=== PATIENT | male | born 1985 | race Caucasian/White ===

== ENCOUNTER 2021-07-20 12:20 | Emergency (ER) | payer OTHER, SELFPAY ==
[2021-07-20 12:31] VITALS: BP 152/94; PULSE 69; RESP 13; TEMP 36.6; O2SAT 98; BMI 34.4
[2021-07-20 12:37] VITALS: TEMP 36.5
--- NOTE | 2021-07-20 13:01 | W.ED.SKABFB ---
HPI - Skin/Abscess/Foreign Bdy General: Chief complaint: Skin/Abscess/Foreign Body Stated complaint: abscess/ bite on left ankle Time Seen by Provider: 07/20/21 12:51 History of Present Illness: Patient is a 36-year-old male comes to the ED with rash on left ankle. Patient noticed rash on left ankle last night. It is red, warm and tender to the touch. [place] and goes outside. In the [place] a lot, but denies feeling any kind of bite. Associated symptoms: Deny chills, fever(s), nausea or vomiting Review of Systems Const: Denies: fever(s), chills or fatigue Eyes: Denies: change in vision or eye discomfort ENMT: Denies: throat pain, odynophagia, nasal discharge or nasal congestion Card: Denies: chest pain, palpitations, edema, swelling of feet/ankles, dyspnea on exertion or orthopnea Resp: Denies: dyspnea, productive cough or non-productive cough GI: Denies: abdominal pain, nausea, vomiting, diarrhea, constipation or hematochezia : Denies: flank pain, difficulty urinating, dysuria or hematuria Musc: Denies: neck pain, back pain or extremity swelling Skin/Breast: Reports: new lesions (Painful, red and warm lesion to left ankle.); Denies: rash Neuro: Denies: headache(s), numbness in extremities or weakness in extremities PFS ED PFSH: Medical History No pertinent family history Surgical History No pertinent past surgical history Physical Exam Const: COMMON NORMALS: no acute distress, patient oriented x3 and alert GENERAL APPEARANCE: cooperative and comfortable HENMT: COMMON NORMALS: normocephalic HEAD & SCALP: normocephalic MOUTH: Normal oral and palatal mucosa present THROAT: posterior oropharynx normal and uvula midline Neck/C-Spine: COMMON NORMALS: supple GENERAL: Yes normal visual inspection Resp: COMMON NORMALS: normal respiratory effort, No retractions, No use of accessory muscles and clear to auscultation bilaterally AUSCULTATION: clear to auscultation bilaterally Cardio: COMMON NORMALS: regular rate, regular rhythm, S1 normal heart sound present, S2 normal heart sound present, No gallops present (Cardio), No clicks present (Cardio), No murmurs present (Cardio) and Peripheral pulses 2+ throughout RATE: regular rate RHYTHM: regular rhythm HEART SOUNDS: S1 normal heart sound present and S2 normal heart sound present PERIPHERAL PULSES: Peripheral pulses 2+ throughout GI: COMMON NORMALS: Normal to inspection, nondistended, normoactive bowel sounds present, Soft to palpation, non-tender and no masses PALPATION: Yes Soft to palpation : COMMON NORMALS: Yes no CVA tenderness BLADDER/KIDNEY EXAM: Yes no CVA tenderness Back/Pelvis: COMMON NORMALS: no CVA tenderness Extremity: COMMON NORMALS: normal to inspection Neuro: COMMON NORMALS: patient oriented x3 and moves all extremities SENSORIUM/ORIENTATION: Yes alert Skin: NARRATIVE SKIN EXAM: Medial aspect of left ankle?circular erythemic, warm and raised maculopapular rash with a diameter of 6 cm. in the center of rash appears to be 2 very small puncture wounds. No purulent drainage noted. Findings suggestive of some cellulitis developing after possible insect/spider bite. GENERAL SKIN EXAM: dry skin Course Vital Signs: Vital signs: Vital Signs Temperature 97.7 F 07/20/21 12:37 Pulse Rate 69 07/20/21 12:31 Respiratory Rate 13 07/20/21 12:31 Blood Pressure 152/94 07/20/21 12:31 Pulse Oximetry 98 07/20/21 12:31 MDM - Skin/Abscess/Foreign Bdy Medicial Decision Making Patient is a 36-year-old male comes to the ED with rash on left ankle. He says his origin of rash is unknown and noticed it yesterday. Rash is painful red and warm. Vitals are stable and patient appears nontoxic in no acute distress. Medial aspect of left ankle?circular erythemic, warm and raised maculopapular rash. In the center of lash appears to be 2 very small puncture wounds. Findings suggestive of some cellulitis developing after possible insect/spider bite. Patient was sent home with a prescription for Bactrim. He was told to follow-up with his PCP in the next week for reevaluation. Return to ED precautions given. Patient is done agree with plan. Discharge Plan Discharge Patient Disposition: Home Clinical Impression: Cellulitis Qualifiers: Site of cellulitis: extremity Site of cellulitis of extremity: lower extremity Laterality: left Qualified Code(s): L03.116 - Cellulitis of left lower limb Condition: Stable Prescriptions: New Bactrim DS 800-160 mg tablet 1 tab PO BID 7 Days Qty: 14 0RF Discharge Orders: Discharge ED (Routine); Ordered 07/20/21 Ordered By: Salinas Parsons Discharge Diet: Regular Discharge Activity: Resume usual activity Activity Restrictions/Additional Instructions: Follow-up with medical provider as directed within the next 3 to 5 days to have rash reevaluated. take medications as prescribed. You should notice improvement or rash should stop expanding after being on antibiotics for 48 to 72 hours. return to the ER or your medical provider if condition worsens. Please read and understand discharge instructions. Thank you for choosing [facility] for your healthcare needs today. Please realize this is an emergency room and that we are providing you with a medical screening exam and this may not be complete and all inclusive of all the testing and or work up that you may need to determine your ailment or severity of your illness. It is very important that you follow up as instructed or that you return to the Emergency Department should you have concerns or if your condition changes or worsens in any way. Coding Level of Care Code ED Automotive Machinist Apprentice for Genoveva Hutton Exam Comprehensive
== END 2021-07-20 13:18 | disposition home or self-care (01) ==
PROVIDERS: Emergency Provider Physician Assistant
DX: L03.116 Cellulitis of left lower limb (principal)
CPT/HCPCS: 99283

== ENCOUNTER 2021-10-28 12:39 | Emergency (ER) | payer OTHER, SELFPAY ==
[2021-10-28 13:04] VITALS: BP 134/88; PULSE 83; RESP 16; TEMP 36.7; O2SAT 97; BMI 33.4
[2021-10-28 13:32] VITALS: BP 158/92; PULSE 84; RESP 17; O2SAT 97
--- NOTE | 2021-10-28 13:52 | W.ED.BACK ---
HPI - Back Pain/Injury General: Chief Complaint: Back Pain/Injury Stated Complaint: says his Back is locked up Time Seen by Provider: 10/28/21 13:31 PFSH ED PFSH: Medical History No pertinent family history Surgical History No pertinent past surgical history Course Vital Signs: Vital signs: Vital Signs Temperature 98.1 F 10/28/21 13:04 Pulse Rate 84 10/28/21 13:32 Respiratory Rate 17 10/28/21 14:15 Blood Pressure 158/92 10/28/21 13:32 Pulse Oximetry 97 10/28/21 13:32 Oxygen Delivery Me thod 10/28/21 13:32 Discharge Plan Discharge Condition: Stable Prescriptions: No Action ibuprofen 200 mg Tablet 800 mg PO Q6H PRN (Reason: Pain) Coding Level of Care Code ED Relish Blender for Genoveva Hutton
[2021-10-28] MEDS: ketorolac 30 mg/mL INJ IM (14:14)
[2021-10-28 14:15] VITALS: RESP 17
[2021-10-28] MEDS: lidocaine 5% Patch 1 PATCH TOPICAL (14:15)
[2021-10-28] MEDS: morphine 4 mg/mL SDV 1 mL IM (14:15)
[2021-10-28] MEDS: triamcinolone 40 mg/mL SDV IM (14:21)
--- NOTE | 2021-10-28 14:52 | ED_ITS ---
HPI - General Adult General: Chief complaint: Back Pain/Injury Stated complaint: says his Back is locked up Time Seen by Provider: 10/28/21 13:31 History of Present Illness: Patient is a 36-year-old male with history of chronic back pain for the last 2 years presenting to the emergency room with complaints of cute onset of left lower back/glute pain with radiation to the leg. Patient tells me that yesterday bent over when he felt the sudden onset of pain. Since then, patient has had significant worsening of pain with radiation to the left flank. Patient denies any weakness, legs, fever/chills, IV drug use, and history of diabetes. Patient denies any saddle symptoms, bladder or bowel problem. Patient has no history immunocompromise, diabetes or HIV. Onset: 1 day ago Duration:1 day Location:home Severity:moderate Associated symptoms: Deny chest pain, dyspnea, nausea, rash, palpitations or vomiting Review of Systems Const: Denies: fever(s) or chills Eyes: Denies: change in vision ENMT: Denies: mouth pain Card: Denies: chest pain or palpitations Resp: Denies: dyspnea or non-productive cough GI: Denies: abdominal pain, nausea, vomiting or diarrhea : Denies: dysuria Musc: Reports: other (+L lumbar back pain); Denies: extremity pain Skin/Breast: Denies: rash or new lesions Neuro: Denies: weakness in extremities Psych: Reports: other (Normal mood) Williams/Lymph: Denies: easy bruising PFS ED PFSH: Medical History No pertinent family history Surgical History No pertinent past surgical history Physical Exam Const: COMMON NORMALS: alert HENMT: COMMON NORMALS: atraumatic HEAD & SCALP: atraumatic MOUTH: moist mucous membranes not abnormal Eye: COMMON NORMALS: EOMs intact bilaterally and conjunctivae normal CONJUNCTIVA: Yes conjunctivae normal Neck/C-Spine: COMMON NORMALS: full ROM and supple Resp: COMMON NORMALS: normal respiratory effort and clear to auscultation bilaterally AUSCULTATION: clear to auscultation bilaterally Cardio: COMMON NORMALS: regular rate RATE: regular rate GI: COMMON NORMALS: Soft to palpation and non-tender PALPATION: Yes Soft to palpation Extremity: COMMON NORMALS: full ROM Neuro: SENSORIUM/ORIENTATION: Yes alert MOTOR EXAM: No Abnormal motor strength present and Other motor observations present (no focal motor deficits) Psych: COMMON NORMALS: speech normal SPEECH: Yes normal speech MOOD & AFFECT: Yes euthymic mood Procedures Nerve Block Nerve Block 1: Time out performed: Yes Local Anesthetic: lidocaine 1% and with epi Amount of anesthesia used (mL): 10 Side: left Nerve Blocks: other (No nerve block, local injection to L paraspinal knots) Additional Comments: Trigger point injection: 3 palpable knots over the left paraspinal muscles and L ugte at the level of L5/S1 identified. Risks of procedures in infection, nerve injury, hematoma, and bleeding discussed extensively with patient and alternatives of medical management discussed in detail including conservative management. Patient elects for the procedure. Trigger point injections of the L glutes - one knot were appreciated on palpitation. Trigger point injection of the L paraspinal muscle - two knots were appreciated. Surface cleaned extensively with isopropyl alcohol and chlorohexadine, sterile 7-0 gloves used. 40mg of kenalog mixed 10 cc of lidocaine 1% w/ epi were injected into the sites of pain and pressure. No neurological complications. Patient reports significant pain improvement and is now able to ambulate without any difficulities. Course Vital Signs: Vital signs: Vital Signs Temperature 98.1 F 10/28/21 13:04 Pulse Rate 84 10/28/21 13:32 Respiratory Rate 17 10/28/21 14:15 Blood Pressure 158/92 10/28/21 13:32 Pulse Oximetry 97 10/28/21 13:32 Oxygen Delivery Me thod 10/28/21 13:32 MDM - General Adult Medical Decision Making Patient is a 36-year-old male with history of chronic back pain for the last 2 years presenting to the emergency room with complaints of cute onset of left lower back/glute pain with radiation to the leg. Exam, patient has 3 knots palpable knots on the left paraspinal lower back and glute area. 5 out of 5 strength in the lower extremity, no saddle anesthesia. Patient has no bowel or bladder symptoms. Symptoms are consistent with possible sciatica and muscle knots. Patient received IM Toradol and morphine with improvement in pain. Patient had paraspinal L5/S1 injection into the muscle knots. Patient reports feeling symptomatically improved. Patient is able to ambulate with crutches. Please refer to the procedure note. Rx: percocet, lidocaine patch, and menthol PRN pain Disposition: Discharge. Patient counseled regarding diagnostic impression, treatment plan. Patient given ED strict return precautions to return for continuation, worsening, or development of new symptoms. Instructed to f/u w/ PCP regarding symptoms today. Patient verbalized understanding. Discharge Plan Discharge Patient Disposition: Home Clinical Impression: Back pain, Sciatica, Lumbar radiculopathy Condition: Stable Prescriptions: New Percocet 5-325 mg tablet 1 tab PO Q8H PRN (Reason: pain) Qty: 5 0RF lidocaine 5 % adhesive patch,medicated 1 patch topical DAILY PRN (Reason: pain) 30 Days Qty: 30 0RF Rx Instructions: leave on most painful area for up to 12 hrs Biofreeze (menthol) 5 % gel 1 ea topical BID PRN (Reason: pain) 10 Days Qty: 1 0RF No Action ibuprofen 200 mg Tablet 800 mg PO Q6H PRN (Reason: Pain) Discharge Orders: Discharge ED (Routine); Ordered 10/28/21 Ordered By: Jaelyn Ball Discharge Diet: Advance as tolerated Discharge Activity: Increase activity as tolerated Patient Instructions: Back Pain (ED), Opioid Safety Activity Restrictions/Additional Instructions: Please come back to the emergency room to have worsening back pain, if have any problem with urination and bowel movementm if you have any weakness in the legs, numbness in the legs, or if you have any new or concerning complaints. Our mental health case manager will have you follow-up with Orthopedic surgery in the next few days. You would be expected to have a phone call with our mental health case manager who will put you on the schedule. You can expect a call from us in the next 2-3 days. If you don't hear from us, call us back in the emergency room at [phone]. Coding Level of Care Code ED Dude Wrangler for Genoveva Hutton Exam Comprehensive
== END 2021-10-28 15:26 | disposition home or self-care (01) ==
PROVIDERS: Emergency Provider Emergency Medicine
DX: M54.16 Radiculopathy, lumbar region (principal); M54.30 Sciatica, unspecified side
CPT/HCPCS: 20552; 96372; 99284; E0114; J1885; J2270; J3301

== ENCOUNTER 2022-02-20 15:14 | Emergency (ER) | payer OTHER, SELFPAY ==
[2022-02-20 17:12] VITALS: BP 138/76; PULSE 102; RESP 18; TEMP 37.3; O2SAT 95; BMI 33.4
--- NOTE | 2022-02-20 17:17 | XRR_ITS ---
PROCEDURE INFORMATION: Exam: XR Chest Exam date and time: 02/20/2022 6:02 PM Age: 36 years old Clinical indication: Shortness of breath; Additional info: SOB TECHNIQUE: Imaging protocol: Radiologic exam of the chest. Views: 1 view. COMPARISON: No relevant prior studies available. FINDINGS: Lungs: Unremarkable. No consolidation. Pleural spaces: Unremarkable. No pleural effusion. No pneumothorax. Heart/Mediastinum: Unremarkable. No cardiomegaly. Bones/joints: Unremarkable for age. XR/XR chest 1V portable [id number] IMPRESSION: Negative chest
--- NOTE | 2022-02-20 19:38 | W.ED.SOB ---
HPI - SOB/Dyspnea General: Chief Complaint: Shortness of Breath/Dyspnea Stated Complaint: possible flu Time Seen by Provider: 02/20/22 19:34 Source: patient Mode of arrival: ambulatory Limitations: no limitations History of Present Illness: HPI Narrative: 36-year-old male states that over the last 2 days he has been having cough congestion body aches along with low-grade fevers. He states he feels like he has the flu he denies any vomiting or diarrhea he denies any worsening improving factors. Associated symptoms: Reports fever(s); Deny abdominal pain, chest pain, nausea or vomiting Review of Systems Const: Reports: fever(s), chills and body aches Eyes: Denies: blurry vision or eye discomfort ENMT: Reports: nasal congestion Card: Denies: chest pain Resp: Reports: non-productive cough GI: Denies: abdominal pain, nausea, vomiting or diarrhea : Denies: dysuria Musc: Denies: neck pain or back pain Skin/Breast: Denies: rash Neuro: Denies: headache(s) Psych: Denies: depression Williams/Lymph: Denies: easy bruising All/Imm: Denies: urticaria PFSH ED PFSH: Medical History No pertinent family history Surgical History No pertinent past surgical history Social History (Updated 02/20/22 @ 19:39 by Xander Arias MD) Smoking and tobacco status: current every day smoker Physical Exam Const: COMMON NORMALS: no acute distress, patient oriented x3 and healthy appearing HENMT: COMMON NORMALS: normocephalic and atraumatic HEAD & SCALP: normocephalic and atraumatic Eye: COMMON NORMALS: Equal, round and reactive pupils present and EOMs intact bilaterally PUPIL: Yes Equal, round and reactive pupils present Neck/C-Spine: COMMON NORMALS: full ROM and supple Chest: COMMONS NORMALS: normal inspection of the chest and normal palpation of entire chest wall Resp: COMMON NORMALS: normal respiratory effort, No retractions, No use of accessory muscles and clear to auscultation bilaterally AUSCULTATION: clear to auscultation bilaterally Cardio: COMMON NORMALS: regular rate, regular rhythm and No murmurs present (Cardio) RATE: regular rate RHYTHM: regular rhythm GI: COMMON NORMALS: Normal to inspection, nondistended, normoactive bowel sounds present, Soft to palpation, non-tender and no masses PALPATION: Yes Soft to palpation Extremity: COMMON NORMALS: normal to inspection and full ROM Neuro: COMMON NORMALS: patient oriented x3, moves all extremities and no focal motor deficits Psych: COMMON NORMALS: mental status grossly normal, Normal thought process present and cooperative THOUGHT PROCESS: Normal thought process present Skin: COMMON NORMALS: no rashes or lesions noted and no wounds GENERAL SKIN EXAM: no rashes or lesions noted Course Vital Signs: Vital signs: Vital Signs Temperature 99.2 F 02/20/22 17:12 Pulse Rate 102 H 02/20/22 17:12 Respiratory Rate 18 02/20/22 17:12 Blood Pressure 138/76 02/20/22 17:12 Pulse Oximetry 95 02/20/22 17:12 Oxygen Delivery Me thod 02/20/22 17:12 MDM - SOB/Dyspnea Medical Decision Making Patient presents here with cough congestion is flu positive we will start him on Tamiflu he is well-appearing in no distress he stable for discharge. Lab Data Labs/Radiology: Radiology Impressions Chest X-Ray 02/20/22 17:17 IMPRESSION: Negative chest Laboratory Results Influenza Type A Ag Positive (Negative) H 02/20/22 20:20 Influenza Type B Ag Negative (Negative) 02/20/22 20:20 SARS-CoV-2 Ag (Rapid) negative (Negative) 02/20/22 20:20 Discharge Plan Discharge Patient Disposition: Home Clinical Impression: Influenza A Prescriptions: New Tamiflu 75 mg capsule 75 mg PO BID 5 Days Qty: 10 0RF No Action ibuprofen 200 mg Tablet 800 mg PO Q6H PRN (Reason: Pain) Percocet 5-325 mg tablet 1 tab PO Q8H PRN (Reason: pain) Qty: 5 0RF Discharge Orders: Discharge ED (Routine); Ordered 02/20/22 Ordered By: Xander Arias Discharge Diet: Advance as tolerated Discharge Activity: Resume usual activity Patient Instructions: Influenza (ED) Coding Level of Care Code ED Event Producer for g Fwd Exam Comprehensive
[2022-02-20] MEDS: dexamethasone 10 mg/mL INJ IM (20:11)
[2022-02-20] MEDS: ketorolac 60 mg/2 mL INJ IM (20:11)
[2022-02-20 20:52] LABS: SARS Covid-2 Antigen negative (Negative)
[2022-02-20 21:09] LABS: Influenza A by IFA Positive (Negative); Influenza B by IFA Negative (Negative)
[2022-02-20 21:39] VITALS: PULSE 80; RESP 18
== END 2022-02-20 21:38 | disposition home or self-care (01) ==
PROVIDERS: Emergency Provider Emergency Medicine
DX: J10.1 Influenza due to other identified influenza virus with other respiratory manifestations (principal); Z20.822 Contact with and (suspected) exposure to COVID-19; F17.210 Nicotine dependence, cigarettes, uncomplicated
CPT/HCPCS: 71045; 87426; 87804; 96372; 99284; J1100; J1885

== ENCOUNTER 2022-11-01 22:10 | Emergency (ER) | payer SELFPAY ==
[2022-11-01 22:12] VITALS: BP 159/48; PULSE 79; RESP 20; TEMP 36.6; O2SAT 98; BMI 33.4
--- NOTE | 2022-11-01 22:22 | CTR_ITS ---
PROCEDURE INFORMATION: Exam: CT Abdomen And Pelvis Without Contrast Exam date and time: 11/01/2022 11:12 PM Age: 37 years old Clinical indication: Abdominal pain; Localized; Right lower quadrant (rlq); Patient HX: Severe rlq pain TECHNIQUE: Imaging protocol: Computed tomography of the abdomen and pelvis without contrast. Radiation optimization: All CT scans at this facility use at least one of these dose optimization techniques: automated exposure control; mA and/or kV adjustment per patient size (includes targeted exams where dose is matched to clinical indication); or iterative reconstruction. REPORTING DATA: Count of CT and Cardiac NM exams in prior 12 months: This patient has received 0 known CTs and 0 known cardiac nuclear medicine studies in the 12 months prior to the current study. COMPARISON: CR (CHEST, ) 02/20/2022 6:02 PM RADIATION DOSE METRICS: Total DLP (mGy-cm): 798.73 FINDINGS: Liver: The liver is unremarkable in appearance. Gallbladder and bile ducts: Unremarkable. No calcified stones. No ductal dilation. Pancreas: The pancreas is normal in appearance. No pancreatic duct dilatation. Spleen: No focal splenic lesion. No splenomegaly. Adrenal glands: The adrenal glands appear within normal limits. Kidneys and ureters: Nonobstructing 2 mm bilateral renal calculi noted. Mild right hydroureteronephrosis. There is a 3 mm distal right ureteral calculus. Findings are consistent with right obstructive uropathy. Left kidney is unremarkable. Stomach and bowel: No acute bowel abnormality identified. Appendix: The appendix is normal in appearance. No evidence of appendicitis. Intraperitoneal space: No free air. No significant fluid collection. Vasculature: No abdominal aortic aneurysm. Lymph nodes: No pathologically enlarged lymph nodes. Urinary bladder: The urinary bladder is unremarkable in appearance. Reproductive: Unremarkable as visualized. Bones/joints: Unremarkable. No acute osseous abnormality. Soft tissues: Unremarkable. CT/CT abdomen pelvis wo con [id number] IMPRESSION: 1. Mild right hydroureteronephrosis. There is a 3 mm distal right ureteral calculus. Findings are consistent with right obstructive uropathy. 2. The appendix is normal in appearance. No evidence of appendicitis.
[2022-11-01 22:40] VITALS: RESP 26; O2SAT 96
[2022-11-01] MEDS: sodium chloride 0.9% 1,000 ML 999 ML IV (22:40)
[2022-11-01] MEDS: HYDROmorphone 1 mg/mL INJ 1 mL IVP ×2 (22:40→22:59)
[2022-11-01] MEDS: ondansetron 2 mg/ML SDV 2 mL 4 MG IVP ×2 (22:40→23:00)
[2022-11-01 22:50] LABS: Basophils % 0.3 %; Eosinophils # 0.1 10^3/uL (0.0-0.8); Eosinophils % 1.1 %; Hematocrit 43.7 % (37-53); Lymphocytes # 3.1 10^3/uL (0.8-4.8); Mean Corpuscular HGB Conc 35.2 g/dL (30-55); Mean Corpuscular Hemoglobin 31.6 pg (27-33); Mean Corpuscular Volume 89.5 fl (82-101); Mean Platelet Volume 10.2 fL (7.4-10.4); Monocytes # 0.7 10^3/uL (0.2-0.9); Monocytes % 5.8 %; Neutrophils # 8.38 10^3/uL (1.8-7.7); Neutrophils % 67.4 %; Nucleated Red Blood Cells % 0 %; Platelet Count 205 10^3/cmm (157-399); Red Blood Count 4.88 10^6/uL (3.85-5.65); Red Cell Distribution Width 12.2 % (12.1-15.1); White Blood Count 12.44 10^3/uL (3.29-11.43)
[2022-11-01 22:59] VITALS: RESP 20; O2SAT 97
--- NOTE | 2022-11-01 23:10 | ED_ITS ---
HPI - Abdominal Pain General: Chief Complaint: Abdominal Pain Stated Complaint: lower right quadrent pain Time Seen by Provider: 11/01/22 22:22 Source: patient History of Present Illness: 37-year-old male with sudden onset right lower quadrant pain an hour or so prior to arrival. He has vomited several times. No fever, but chills. MD elicited complaint: abdominal pain Associated Symptoms: Reports chills, nausea and vomiting; Denies diarrhea and fever(s) Review of Systems Const: Reports: chills; Denies: fever(s) ENMT: Denies: throat pain Card: Denies: chest pain or palpitations Resp: Denies: dyspnea or productive cough GI: Reports: abdominal pain, nausea and vomiting; Denies: diarrhea Skin/Breast: Denies: rash PFSH ED PFSH: Medical History No pertinent family history Surgical History No pertinent past surgical history Social History Smoking and tobacco status: current every day smoker Physical Exam Const: GENERAL APPEARANCE: cooperative and ill appearing (mildly); not frail appearing HENMT: COMMON NORMALS: normocephalic, atraumatic and Normal external nose present HEAD & SCALP: normocephalic and atraumatic FACE & SINUS: normal facial exam and face symmetric NOSE: Normal external nose present Eye: COMMON NORMALS: Equal, round and reactive pupils present and EOMs intact bilaterally PUPIL: Yes Equal, round and reactive pupils present Neck/C-Spine: GENERAL: Yes trachea midline Chest: CHEST: Yes Symmetrical chest wall rise Resp: COMMON NORMALS: normal respiratory effort, No retractions, No use of accessory muscles and clear to auscultation bilaterally AUSCULTATION: clear to auscultation bilaterally Cardio: COMMON NORMALS: regular rate and regular rhythm RATE: regular rate RHYTHM: regular rhythm GI: COMMON NORMALS: Normal to inspection, nondistended, normoactive bowel sounds present PALPATION: Yes Tenderness to palpation present (GI) Details: RLQ Extremity: COMMON NORMALS: no pedal edema Neuro: ARLIN COMA SCALE: document GCS findings [place] coma scale eye opening: Spontaneous [place] coma scale verbal response: Orientated [place] coma scale motor response: Obey commands [place] coma scale total score: 15 SENSORY EXAM: Yes extremities (intact) Psych: COMMON NORMALS: speech normal SPEECH: Yes normal speech Skin: COMMON NORMALS: no rashes or lesions noted GENERAL SKIN EXAM: no rashes or lesions noted Course Vital Signs: Vital signs: Vital Signs Temperature 97.9 F 11/01/22 22:12 Pulse Rate 60 11/02/22 02:04 Respiratory Rate 16 11/02/22 02:04 Blood Pressure 121/74 11/02/22 02:04 Pulse Oximetry 97 11/01/22 22:59 Oxygen Delivery Me thod Room Air 11/01/22 22:12 MDM - Abdominal Pain Medical Decision Making CBC shows a white blood cell count of 12. Potassium is 3.4. Other laboratory is not remarkable. CT shows mild right hydro nephrosis with a 3 mm distal right ureter calculus. CRP is 3. Patient is afebrile. He will be allowed home. Pain control, Flomax, urology follow-up. Lab Data 11/01/22 22:35 11/01/22 22:35 Labs/Radiology: Radiology Impressions Abdomen/Pelvis CT 11/01/22 22:22 IMPRESSION: 1. Mild right hydroureteronephrosis. There is a 3 mm distal right ureteral calculus. Findings are consistent with right obstructive uropathy. 2. The appendix is normal in appearance. No evidence of appendicitis. Laboratory Results WBC 12.44 10^3/uL (3.29-11.43) H 11/01/22 22:35 RBC 4.88 10^6/uL (3.85-5.65) 11/01/22 22:35 Hgb 15.40 g/dL (11.27-16.99) 11/01/22 22:35 Hct 43.7 % (37-53) 11/01/22 22:35 MCV 89.5 fl (82-101) 11/01/22 22:35 MCH 31.6 pg (27-33) 11/01/22 22:35 MCHC 35.2 g/dL (30-55) 11/01/22 22:35 RDW 12.2 % (12.1-15.1) 11/01/22 22:35 Plt Count 205 10^3/cmm (157-399) 11/01/22 22:35 MPV 10.2 fL (7.4-10.4) 11/01/22 22:35 Neut % (Auto) 67.4 % 11/01/22 22:35 Lymph % (Auto) 25.0 % 11/01/22 22:35 [place] % (Auto) 5.8 % 11/01/22 22:35 Eos % (Auto) 1.1 % 11/01/22 22:35 Baso % (Auto) 0.3 % 11/01/22 22:35 Neut # (Auto) 8.38 10^3/uL (1.8-7.7) H 11/01/22 22:35 Lymph # (Auto) 3.1 10^3/uL (0.8-4.8) 11/01/22 22:35 [place] # (Auto) 0.7 10^3/uL (0.2-0.9) 11/01/22 22:35 Eos # (Auto) 0.1 10^3/uL (0.0-0.8) 11/01/22 22:35 Baso # (Auto) 0.0 10^3/uL (0.0-0.1) 11/01/22 22:35 Nucleated RBC % (auto) 0 % 11/01/22 22:35 Nucleated RBCs # 0.0 /100WBC 11/01/22 22:35 Sodium 140 mmol/L (136-145) 11/01/22 22:35 Potassium 3.4 mmol/L (3.5-5.1) L 11/01/22 22:35 Chloride 103 mmol/L (98-107) 11/01/22 22:35 Carbon Dioxide 22 mmol/L (22-29) 11/01/22 22:35 Anion Gap 18.4 (5-19) 11/01/22 22:35 BUN 17 mg/dL (6-20) 11/01/22 22:35 Creatinine 1.2 mg/dL (0.7-1.2) 11/01/22 22:35 GFR Calculation 68.1 mL/min (90-130) L 11/01/22 22:35 Glucose 126 mg/dL (65-115) H 11/01/22 22:35 Calculated Osmolality 293 mOsm/kg (285-295) 11/01/22 22:35 Calcium 9.7 mg/dL (8.5-10.5) 11/01/22 22:35 Total Bilirubin 0.7 mg/dL (0.15-1.2) 11/01/22 22:35 AST 25 U/L (0-40) 11/01/22 22:35 ALT 29 U/L (0-41) 11/01/22 22:35 Alkaline Phosphatase 46 U/L (40-130) 11/01/22 22:35 C-Reactive Protein 3.0 mg/L (0.0-4.9) 11/01/22 22:35 Total Protein 7.6 g/dL (6.6-8.7) 11/01/22 22:35 Albumin 4.7 g/dL (3.5-5.2) 11/01/22 22:35 Globulin 2.9 g/dL (1.3-4.6) 11/01/22 22:35 Lipase 47 U/L (13-60) 11/01/22 22:35 Discharge Plan Discharge Patient Disposition: Home Clinical Impression: Ureterolithiasis Condition: Stable Prescriptions: New Percocet 7.5-325 mg tablet 1 tab PO Q6H PRN (Reason: pain) Qty: 10 0RF ondansetron 4 mg film 4 mg PO DAILY PRN (Reason: nausea and vomiting) Qty: 10 0RF Flomax 0.4 mg capsule 0.4 mg PO DAILY Qty: 10 0RF Discontinued oxycodone-acetaminophen [Percocet] 5-325 mg tablet 1 tab PO Q8H PRN (Reason: pain) Qty: 5 0RF No Action ibuprofen 200 mg Tablet 800 mg PO Q6H PRN (Reason: Pain) Discharge Orders: Discharge ED (Routine); Ordered 11/02/22 Ordered By: Geovanny Goodwin Patient Instructions: Kidney Stones (ED), Opioid Safety, Pain Management Activity Restrictions/Additional Instructions: Return for fever greater than 100, worsening pain despite treatment, vomiting liquids or medications despite treatment, other concerning symptoms. Case management will make you an appointment with a urologist. You should hear from them at the beginning of the week. Coding Level of Care Code ED Sales Development Representative for Genoveva Hutton
[2022-11-01 23:23] LABS: Alanine Aminotransferase 29 U/L (0-41); Albumin Level 4.7 g/dL (3.5-5.2); Alkaline Phosphatase 46 U/L (40-130); Anion Gap 18.4 (5-19); Aspartate Amino Transferase 25 U/L (0-40); Blood Urea Nitrogen 17 mg/dL (6-20); Calcium 9.7 mg/dL (8.5-10.5); Carbon Dioxide 22 mmol/L (22-29); Chloride 103 mmol/L (98-107); Globulin 2.9 g/dL (1.3-4.6); Glomerular Filtration Rate 68.1 mL/min (90-130); Glucose 126 mg/dL (65-115); Lipase 47 U/L (13-60); Osmolality Calculated 293 mOsm/kg (285-295); Potassium 3.4 mmol/L (3.5-5.1); Sodium 140 mmol/L (136-145); Total Bilirubin 0.7 mg/dL (0.15-1.2); Total Protein 7.6 g/dL (6.6-8.7)
--- NOTE | 2022-11-02 00:13 | PC.NURSE ---
assistant director of security reports that iv in rt ac is no good. Unable to inject dye.
[2022-11-02] MEDS: ketorolac 30 mg/mL INJ IVP (00:38)
[2022-11-02 02:04] VITALS: BP 121/74; PULSE 60; RESP 16
--- NOTE | 2022-11-03 15:20 | DCPLANNER ---
build manager had message to schedule a follow up appointment for patient with urology. build manager called patient at phone number [phone], unable to speak with patient and unable to leave a voicemail for patient.
== END 2022-11-02 02:08 | disposition home or self-care (01) ==
PROVIDERS: Emergency Provider Emergency Medicine
DX: N13.2 Hydronephrosis with renal and ureteral calculous obstruction (principal)
CPT/HCPCS: 74176; 80053; 83690; 85025; 86140; 96361; 96374; 96375; 96376; 99285; J1170; J1885; J2405; J7030